=== PATIENT | male | born 1985 | race Caucasian/White ===

== ENCOUNTER 2017-03-13 07:58 | Emergency (ER) | payer SELFPAY ==
[2017-03-13 08:03] VITALS: BP 114/73
--- NOTE | 2017-03-13 08:41 | ER Document Report ---
HPI - HPI Patient complains to provider of: Left knee swelling Onset: Other - 1 week ago Onset/Duration: Sudden Pain Level: 5 Context: 31-year-old complaining of left knee swelling on Tuesday morning after falling heavy logs after cutting a tree on . No specific pain and only feels tight wanted to know if there was fluid in the joint. No fever. No history of MRSA. Exacerbated by: Denies Relieved by: Denies Similar symptoms previously: No Recently seen / treated by doctor: No - ROS ROS below otherwise negative: Yes Systems Reviewed and Negative: Yes All other systems reviewed and negative Past Medical History - General Information source: Patient - Social History Smoking Status: Unknown if Ever Smoked Frequency of alcohol use: None Drug Abuse: None Lives with: Family Family History: Reviewed & Not Pertinent - Medical History Medical History: Negative - How is moving and happy Surgical Hx: Negative Vertical Provider Document - CONSTITUTIONAL Agree With Documented VS: Yes Exam Limitations: No Limitations General Appearance: No Apparent Distress - INFECTION CONTROL TRAVEL OUTSIDE OF THE [place] IN LAST 30 DAYS: No - HEENT HEENT: Normocephalic - NECK Neck: Supple - RESPIRATORY O2 Sat by Pulse Oximetry: 100 - MUSCULOSKELETAL/EXTREMETIES Musculoskeletal/Extremeties: ROBBIE FROM. negative: Tender Notes: mild left knee effusion by exam, no erythema, tenderness or warmth. - NEURO Level of Consciousness: Awake, Alert, Appropriate Motor/Sensory: No Motor Deficit, No Sensory Deficit - DERM Integumentary: Warm, Dry, No Rash Course - Vital Signs Vital signs: Temp Pulse Resp BP Pulse Ox 97.8 F 76 16 114/73 100 03/13/17 08:03 03/13/17 08:03 03/13/17 08:03 03/13/17 08:03 03/13/17 08:03 Discharge - Discharge Clinical Impression: minimal left knee effusion Condition: Good Disposition: HOME, SELF-CARE Instructions: Knee Effusion ([facility]), Use of Dafg-Uue-Etlzwgj Ibuprofen ([facility]) Additional Instructions: Take Motrin 600 mg 3 times a day for several days Elevate Knee compression with the knee spandex that you have see orthopedics if persists to er if increased size, fever, red, hot or any concerns Referrals: HANNAH HARPER MD [ACTIVE STAFF] - Follow up as needed
== END 2017-03-13 08:52 | disposition home or self-care (01) ==
LOC: ER 07:58
DX: M25.462 Effusion, left knee (principal); M79.89 Other specified soft tissue disorders; X58.XXXA Exposure to other specified factors, initial encounter
CPT/HCPCS: 99283

== ENCOUNTER 2017-05-05 19:08 | Emergency (ER) | payer SELFPAY ==
[2017-05-05 19:34] VITALS: BP 114/78
== END 2017-05-05 20:47 | disposition left against medical advice (07) ==
LOC: ER 19:08
DX: Z53.21 Procedure and treatment not carried out due to patient leaving prior to being seen by health care provider (principal)

== ENCOUNTER 2017-06-05 01:24 | Emergency (ER) | payer SELFPAY ==
[2017-06-05] MEDS ORDERED: MORPHINE SULFATE IR 15 MG TABLET PO ONE (03:20)
[2017-06-05] MEDS ORDERED: IBUPROFEN 600 MG TABLET PO ONE (03:20)
[2017-06-05] MEDS ORDERED: ACETAMINOPHEN 325 MG TABLET PO ONE (03:20)
[2017-06-05] MEDS ORDERED: AMOXICILLIN TR/POT CLAVULANATE 500-125 MG TAB PO ONE (03:31)
--- NOTE | 2017-06-05 03:33 | ER Document Report ---
ED General - General Chief Complaint: Toothache Stated Complaint: TOOTH PAIN Time Seen by Provider: 06/05/17 03:19 Notes: Patient is a 31-year-old male without past medical history presents with 2 days of progressively worsening pain and swelling to the left lower jaw. He describes it as severe, constant, throbbing pain. Worsened by drinking and eating. He has tried [id number] pain medications without any relief. States this feels similar to when he had dental infections in the past. He has not seen a dentist or make contact with the dentist regarding today's concerns due to lack of availability to pay for these services. He denies any fever or constitutional symptoms. No headache or neck pain. No difficulty breathing or swallowing. TRAVEL OUTSIDE OF THE [place] IN LAST 30 DAYS: No - Related Data Allergies/Adverse Reactions: No Known Allergies Allergy (Verified 03/13/17 08:52) Past Medical History - General Information source: Patient - Social History Smoking Status: Current Every Day Smoker Frequency of alcohol use: Rare Drug Abuse: None Lives with: Family Family History: Reviewed & Not Pertinent Renal/ Medical History: Denies: Hx Peritoneal Dialysis Review of Systems - Review of Systems Notes: Constitutional: Negative for fever. HENT: Positive for dental pain and lower facial swelling Eyes: Negative for visual changes. Cardiovascular: Negative for chest pain. Respiratory: Negative for shortness of breath. Gastrointestinal: Negative for abdominal pain, vomiting or diarrhea. Genitourinary: Negative for dysuria. Musculoskeletal: Negative for back pain. Skin: Negative for rash. Neurological: Negative for headaches, weakness or numbness. 10 point ROS negative except as marked above and in HPI. Physical Exam - Vital signs Interpretation: Normal Notes: PHYSICAL EXAMINATION: GENERAL: Well-appearing, well-nourished and in no acute distress. HEAD: Atraumatic, normocephalic. EYES: Pupils equal round and reactive to light, extraocular movements intact, sclera anicteric, conjunctiva are normal. ENT: Mild swelling to the left lower mandible, poor dentition throughout, tooth #18 is cracked with obvious deep dental carry without any evidence of an apical abscess or fluctuance to the gumline NECK: Normal range of motion, supple without lymphadenopathy LUNGS: Breath sounds clear to auscultation bilaterally and equal. No wheezes rales or rhonchi. HEART: Regular rate and rhythm without murmurs ABDOMEN: Soft, nontender, normoactive bowel sounds. No guarding, no rebound. No masses appreciated. EXTREMITIES: Normal range of motion, no pitting or edema. No cyanosis. NEUROLOGICAL: No focal neurological deficits. Moves all extremities spontaneously and on command. PSYCH: Normal mood, normal affect. SKIN: Warm, Dry, normal turgor, no rashes or lesions noted. Course - Re-evaluation Re-evalutation: 06/05/17 03:31 Presentation is most consistent with likely an infected tooth. Patient does have moderate facial swelling however airway is patent. Vitals within normal limits. Patient is able swallow without any difficulty. No evidence of Quique angina, apical abscess, or airway obstruction. Patient will be started on antibiotics. I've instructed to follow-up with dentistry as earliest ability for definitive management. At this time will discharge with return precautions and follow-up recommendations. Verbal discharge instructions given a the bedside and opportunity for questions given. Medication warnings reviewed. Patient is in agreement with this plan and has verbalized understanding of return precautions and the need for primary care follow-up in the next 24-72 hours. Discharge - Discharge Clinical Impression: Dental infection, Facial swelling, Pain, dental Condition: Good Disposition: HOME, SELF-CARE Additional Instructions: You have been seen for dental pain. You have an infected tooth that needs to be removed urgently. Your being started on antibiotics to try to treat the infection in the interim but this is not definitive management. It is very important that you follow-up with a dentist for definitive care. Please return if you develop fever greater than 101, swelling in your face, vomiting, difficulty breathing or swallowing, or any other symptoms that are concerning to you. For your pain: Take ibuprofen 600 mg and acetaminophen 1000 mg every 6 hours together as needed for pain. If this does not control your pain you may take 15 mg of oral morphine every 4 hours as needed. Please be very careful about using the oral morphine and only use this for severe pain. Prescriptions: Morphine Sulfate [Morphine Ir 15 mg Tablet] 15 mg PO Q4HP PRN #12 tablet PRN Reason: Amox Tr/Potassium Clavulanate [Augmentin 875-125 Tablet] 1 tab PO BID 10 Days tablet
[2017-06-05 04:53] VITALS: BP 111/69
== END 2017-06-05 03:50 | disposition home or self-care (01) ==
LOC: ER 01:24
DX: K04.7 Periapical abscess without sinus (principal); K02.9 Dental caries, unspecified; R22.0 Localized swelling, mass and lump, head; K08.89 Other specified disorders of teeth and supporting structures; F17.200 Nicotine dependence, unspecified, uncomplicated
CPT/HCPCS: 99282

== ENCOUNTER 2017-06-08 16:27 | Emergency (ER) | payer SELFPAY ==
[2017-06-08 16:45] VITALS: BP 122/70
[2017-06-08] MEDS ORDERED: LIDOCAINE 2% VISCOUS SOLN 20 ML UDCUP PO ONE (17:02)
[2017-06-08] MEDS ORDERED: KETOROLAC TROMETHAMINE INJ/PF 30 MG/1 ML SDV IM ONE (17:02)
--- NOTE | 2017-06-08 17:03 | ER Document Report ---
HPI - HPI Pain Level: 5 Notes: Patient is a 31-year-old male with no significant past medical history who presents to the ED complaining of continued dental pain to approximately #184- 5 days. Patient states that he was evaluated 3 days ago and was given morphine sulfate as well as Augmentin. Patient states that he has been taking his medications as directed, but has been taking most of his morphine and is down to 1 tablet because of pain. Patient states that his overall swelling has resolved, but continues to have pain and is only here because he wants more and stronger narcotics. Patient states that the morphine does not work as well as he thinks it should any needs a stronger narcotic. Patient has not called to schedule an appoint with a dentist at this time. He has not noticed any obvious abscess or purulent discharge. He is eating and drinking without any difficulties. He is urinating normally and having normal bowel movements. Patient states that he has not been taking any Tylenol or Motrin because that does not work. denies any drug allergies. Patient admits to smoking but denies IV drug use. Denies any headache, fever, head injury, neck pain, URI, sore throat, chest pain, palpitations, syncope, cough, shortness of breath, wheeze, dyspnea, abdominal pain, nausea/vomiting/diarrhea, urinary retention, dysuria, hematuria, or rash. - ROS Systems Reviewed and Negative: Yes All other systems reviewed and negative Past Medical History - Social History Smoking Status: Current Every Day Smoker Family History: Reviewed & Not Pertinent Renal/ Medical History: Denies: Hx Peritoneal Dialysis Vertical Provider Document - CONSTITUTIONAL Agree With Documented VS: Yes Notes: PHYSICAL EXAMINATION: GENERAL: Well-appearing, well-nourished and in no acute distress. HEAD: Atraumatic, normocephalic. EYES: Pupils equal round and reactive to light, extraocular movements intact, sclera anicteric, conjunctiva are normal. ENT: EAC clear b/l. TM's intact b/l without erythema, fluid, or perforation. Nares patent and without discharge. oropharynx clear without exudates. No tonsilar hypertrophy or erythema. Moist mucous membranes. No sinus tenderness. Uvula midline. No palatine shift. No tongue protrusion. No respiratory compromise. Mouth: Pt has upper dental plate and partial lower plate. Poor dentition. + moderate/severe decay and mild gingivitis. No obvious abscess or discharge noted. No facial swelling. + tenderness to tooth #18. NECK: Normal range of motion, supple without lymphadenopathy. No rigidity/ meningismus. LUNGS: Breath sounds clear to auscultation bilaterally and equal. No wheezes rales or rhonchi. HEART: Regular rate and rhythm without murmurs, rubs, gallops. NEUROLOGICAL: Cranial nerves grossly intact. Normal speech, normal gait. Normal sensory, motor exams PSYCH: Normal mood, normal affect. SKIN: Warm, Dry, normal turgor, no rashes or lesions noted. - INFECTION CONTROL TRAVEL OUTSIDE OF THE [place] IN LAST 30 DAYS: No Course - Re-evaluation Re-evalutation: 06/08/17 17:15 Patient is an afebrile, well-hydrated, 31-year-old male who presents to the ED with continued dental pain requesting narcotic medication as he is about to run out of his morphine that he was given 3 days ago. Vitals are acceptable. PE is otherwise unremarkable. Patient states that the only reason he is here is for more pain medications. Patient has not called a dentist to schedule an appointment. Patient has no swelling or evidence of abscess on exam today. Patient states that he has not been taking any Tylenol or Motrin because that does not help take away pain. Patient is started on Augmentin. Toradol ordered. I will send him with viscous lidocaine as well. Declined dental block. Advised patient that I will not be sending him home with any narcotic medication at this time and that he needs to be seen by dentist for probable extraction of that tooth and no I&D warranted. Advised that he take Tylenol and Motrin as well as other conservative measures. Low suspicion for any meningitis, sepsis, peritonsillar/pharyngeal abscess, respiratory compromise, Quique's, temporal arteritis, or other emergent systemic condition at this time. Patient is aware this condition can change from initial presentation and he needs to monitor symptoms closely. Conservative measures otherwise for symptoms. Call to schedule an appointment with a dentist for further evaluation and management. Return to the ED with any worsening/concerning symptoms otherwise as reviewed in discharge. Patient is in agreement. I reviewed all of this with the patient prior to him walking out. Upon leaving the room and the nurse pulling the medications, patient left through the back door (pt was already up for discharge w. orders). - Vital Signs Vital signs: Temp Pulse Resp BP Pulse Ox 98.2 F 64 16 122/70 100 06/08/17 16:44 06/08/17 16:44 06/08/17 16:44 06/08/17 16:44 06/08/17 16:44 Discharge - Discharge Clinical Impression: Pain, dental Condition: Stable Disposition: HOME, SELF-CARE Instructions: Dentist, Toothache ([facility]) Additional Instructions: Elbert and floss twice daily Maintain fluid intake Take antibiotics as directed Mouthwash, salt water gargles, peroxide rinse as needed Tylenol/ibuprofen as needed Recheck with PCM this week Call today/tomorrow and schedule an appointment with your dentist for further evaluation Return to the ED with any worsening symptoms and/or development of fever, headache, facial swelling, swelling of lips/tongue/throat, trouble swallowing, drooling, hoarseness, neck pain/stiffness, chest pain, palpitations, syncope, shortness of breath, trouble breathing, abdominal pain, n/v/d, numbness/tingling , or other worsening symptoms that are concerning to you. Referrals: [facility] [Provider Group] - Follow up as needed
== END 2017-06-08 17:19 | disposition left against medical advice (07) ==
LOC: ER 16:27
DX: K02.9 Dental caries, unspecified (principal); K05.10 Chronic gingivitis, plaque induced; K08.89 Other specified disorders of teeth and supporting structures; F17.200 Nicotine dependence, unspecified, uncomplicated
CPT/HCPCS: 99282

== ENCOUNTER 2017-06-24 21:24 | Emergency (ER) | payer SELFPAY ==
[2017-06-24] MEDS ORDERED: CLINDAMYCIN 300 MG/D5W RTU 300 MG/50 ML RTUPB IV ONE (22:21)
--- NOTE | 2017-06-24 22:27 | ER Document Report ---
ED General - General Chief Complaint: Abscess Stated Complaint: ABSCESS Time Seen by Provider: 06/24/17 22:13 TRAVEL OUTSIDE OF THE [place] IN LAST 30 DAYS: No - HPI Patient complains to provider of: Left jaw swelling Notes: Patient coming in for left jaw swelling. Patient states swelling occurred approximately last 24 hours. Patient states he has an abscess and did try to drain it himself swelling occurred after he self treated. Patient has been to the ER now multiple times in the past few months approximately 4 for dental issues. Patient states he does have a current dental appointment however did not think he can make it. Patient denies any shortness of breath difficulty swallowing fevers chills nausea vomiting. Patient resting comfortably upon my evaluation with obvious jaw swelling on the left side. - Related Data Allergies/Adverse Reactions: No Known Allergies Allergy (Verified 03/13/17 08:52) Past Medical History - Social History Smoking Status: Current Every Day Smoker Chew tobacco use (# tins/day): No Frequency of alcohol use: None Drug Abuse: None Family History: Reviewed & Not Pertinent Patient has suicidal ideation: No Patient has homicidal ideation: No Renal/ Medical History: Denies: Hx Peritoneal Dialysis Review of Systems - Review of Systems Constitutional: No symptoms reported EENT: Other - Dental pain and jaw swelling Cardiovascular: No symptoms reported Respiratory: No symptoms reported Gastrointestinal: No symptoms reported Genitourinary: No symptoms reported Male Genitourinary: No symptoms reported Musculoskeletal: No symptoms reported Skin: No symptoms reported Hematologic/Lymphatic: No symptoms reported Neurological/Psychological: No symptoms reported -: Yes All other systems reviewed and negative Physical Exam - Vital signs Vitals: Temp Pulse Resp BP Pulse Ox 98.8 F 85 18 122/73 97 06/24/17 21:40 06/24/17 21:40 06/24/17 21:40 06/24/17 21:40 06/24/17 21:40 Interpretation: Normal - General General appearance: Appears well, Alert - HEENT Head: Normocephalic, Atraumatic Eyes: Normal Conjunctiva: Normal Cornea: Normal Pupils: PERRL Neck: Normal Notes: Examination of the left sagittal reveals obvious swelling approximate size of a golf ball. There is no swelling underneath the mental region no submandibular swelling. Examination of the oral cavity reveals horrible augmentation patient has an obvious cavity in tooth number approximately 19 or 20 is difficult to tell the exact numbers that he is missing numerous teeth. Patient does have a small area looks like to be an abscess formation at this site. - Respiratory Respiratory status: No respiratory distress Chest status: Nontender Breath sounds: Normal Chest palpation: Normal - Cardiovascular Rhythm: Regular Heart sounds: Normal auscultation Murmur: No - Abdominal Inspection: Normal Distension: No distension Bowel sounds: Normal Tenderness: Nontender Organomegaly: No organomegaly - Back Back: Normal, Nontender - Extremities General upper extremity: Normal inspection, Nontender, Normal color, Normal ROM , Normal temperature General lower extremity: Normal inspection, Nontender, Normal color, Normal ROM , Normal temperature, Normal weight bearing. No: Hortencia's sign - Neurological Neuro grossly intact: Yes Cognition: Normal Orientation: AAOx4 Negar Coma Scale Eye Opening: Spontaneous Negar Coma Scale Verbal: Oriented Custer Coma Scale Motor: Obeys Commands Custer Coma Scale Total: 15 Speech: Normal Motor strength normal: LUE, RUE, LLE, RLE Sensory: Normal - Psychological Associated symptoms: Normal affect, Normal mood - Skin Skin Temperature: Warm Skin Moisture: Dry Skin Color: Normal Course - Re-evaluation Re-evalutation: 06/25/17 01:43 CT scan does show overt abscess. Examination today reveals small area possible abscess next to the concerning to dental block was performed did take an 18- gauge exploratory however no pus was returned. At this time no erythema no signs of liquids patient maintaining his airway will swallow. Patient is very important he follows up with his dentist as scheduled and have the tooth removed. Patient is demonstrating - Vital Signs Vital signs: Temp Pulse Resp BP Pulse Ox 98.8 F 85 18 122/73 97 06/24/17 21:40 06/24/17 21:40 06/24/17 21:40 06/24/17 21:40 06/24/17 21:40 - Laboratory Result Diagrams: 06/24/17 22:35 06/24/17 22:35 Laboratory results interpreted by me: 06/24/17 06/24/17 22:35 22:35 WBC 14.9 H Absolute Neutrophils 10.7 H Absolute Monocytes 1.7 H Carbon Dioxide 31 H Discharge - Discharge Clinical Impression: Dental infection Condition: Good Instructions: Clindamycin ([facility]), Dentist, Dental Infection or Abscess ([facility]), Oral Narcotic Medication ([facility]) Additional Instructions: Your CAT scan does not show any signs of abscess formation. Swelling to her jaw is more likely due to a dental infection. It is very important to follow- up with your dentist as scheduled take antibiotics as prescribed. Return to ER if symptoms worsen. Prescriptions: Clindamycin HCl [Cleocin 150 mg Capsule] 150 mg PO Q6 #40 capsule Hydrocodone/Acetaminophen [Hydrocodon-Acetaminophen 5-325] 1 each PO Q6 PRN #21 tablet PRN Reason:
[2017-06-24 22:48] LABS: ABSOLUTE BASOPHILS # (AUTO) 0.1 10^3/uL (0.0-0.2); ABSOLUTE EOSINOPHILS # (AUTO) 0.2 10^3/uL (0.0-0.6); ABSOLUTE LYMPHOCYTES (AUTO) 2.2 10^3/uL (0.5-4.7); ABSOLUTE MONOCYTES (AUTO) 1.7 10^3/uL (0.1-1.4); ABSOLUTE NEUT (AUTO) 10.7 10^3/uL (1.7-8.2); BASOPHILS % (AUTO) 0.4 % (0-2); EOSINOPHILS % (AUTO) 1.6 % (0-6); HEMATOCRIT 40.5 % (37.9-51.0); HEMOGLOBIN 13.6 g/dL (13.5-17.0); LYMPHOCYTES % (AUTO) 14.6 % (13-45); MEAN CORPUSCULAR HEMOGLOBIN 31.3 pg (27.0-33.4); MEAN CORPUSCULAR HGB CONC 33.6 g/dL (32.0-36.0); MEAN CORPUSCULAR VOLUME 93 fl (80-97); MONOCYTES % (AUTO) 11.6 % (3-13); PLATELET COUNT 239 10^3/uL (150-450); RED BLOOD COUNT 4.36 10^6/uL (4.35-5.55); RED CELL DISTRIBUTION WIDTH 13.3 % (11.5-14.0); SEGMENTED NEUTROPHILS % (AUTO) 71.8 % (42-78); TOTAL CELLS COUNTED % (AUTO) 100 %; WHITE BLOOD COUNT 14.9 10^3/uL (4.0-10.5)
[2017-06-24 23:06] LABS: ANION GAP 7 (5-19); BLOOD UREA NITROGEN 12 mg/dL (7-20); CALCIUM 9.8 mg/dL (8.4-10.2); CARBON DIOXIDE 31 mmol/L (22-30); CHLORIDE 102 mmol/L (98-107); GLUCOSE 80 mg/dL (75-110); POTASSIUM 3.8 mmol/L (3.6-5.0)
--- NOTE | 2017-06-24 23:40 | RADIOLOGY REPORT (SQ) ---
EXAM DESCRIPTION: CT FACIAL AREA WITH COMPLETED DATE/TIME: 06/24/2017 11:22 pm REASON FOR STUDY: left jaw swelling possible abscess COMPARISON: None. TECHNIQUE: Post contrast images through the facial bones and orbits windowed for bone and soft tissu e. Additional coronal and sagittal reconstructed images reviewed. All images stored on PACS. All CT scanners at this facility use dose modulation, iterative reconstruction, and/or weight based d osing when appropriate to reduce radiation dose to as low as reasonably achievable (ALARA). [facility]: Dose Right [facility]: CareDose [facility]: Dose Right [facility]: Teradose 4D [facility]: [place] [employer] CONTRAST TYPE AND DOSE: contrast/concentration: Isovue 370.00 mg/ml; Total Contrast Delivered: 75.0 ml; Total Saline Delivered: 55.0 ml RENAL FUNCTION: None required. The patient is less than 50 years old. RADIATION DOSE: CT Rad equipment meets quality standard of care and radiation dose reduction techniq ues were employed. CTDIvol: 30.4 mGy. DLP: 574 mGy-cm. . LIMITATIONS: None. FINDINGS: FACIAL BONES: No fracture or bone lesion. ORBITS: Intact. No fracture. Symmetric intact globes and retroorbital soft tissues. PARANASAL SINUSES: Scattered ethmoid an maxillary -frontal sinus mucosal thickening. No air-fluid le vels. . SOFT TISSUES: Diffuse swelling in the left mandibular region with reactive adenopathy. No fluid janay ection or abscess identified. INFERIOR BRAIN: Limited view. No acute findings. OTHER: No other significant finding. IMPRESSION: Diffuse swelling in the left mandibular region with reactive adenopathy. No fluid colle ction or abscess identified. TECHNICAL DOCUMENTATION: JOB ID: [id number] [id number] Quality ID # [id number]: Final reports with documentation of one or more dose reduction techniques (e.g., Au tomated exposure control, adjustment of the mA and/or kV according to patient size, use of iterative reconstruction technique) 2010 [employer]- All Rights Reserved Reading location - IP/workstation name: [email or web address]
[2017-06-24] MEDS ORDERED: MORPHINE SULFATE 10 MG/ML INJ IV ONE (23:58)
[2017-06-24] MEDS ORDERED: ONDANSETRON HCL INJ/PF 4 MG/2 ML SDV IV ONE (23:58)
[2017-06-25] MEDS ORDERED: BUPIVACAINE HCL 0.5%-EPI 1:200000 INJ/PF 30 ML VIAL INJ ONE (00:01)
[2017-06-25 02:23] VITALS: BP 120/69
== END 2017-06-25 02:23 | disposition home or self-care (01) ==
LOC: ER 21:24
DX: K04.7 Periapical abscess without sinus (principal); F17.200 Nicotine dependence, unspecified, uncomplicated
CPT/HCPCS: 99284; 96375; 96365; 36415; 87040; 85025; 80048; 70487; J3490 ×2; J2270; J2405